=== PATIENT | male | born 1960 | race Caucasian/White ===

== ENCOUNTER → 2025-04-18 15:01 | Outpatient (BNVA) | payer OTHER, SELFPAY | PROVIDERS: Family Provider Registered Nurse; PCP Registered Nurse; Visit Provider Clinical Nurse Specialist Adult Health | DX: J02.9 Acute pharyngitis, unspecified (principal) | CPT/HCPCS: 87880 ==

== ENCOUNTER → 2025-04-25 14:59 | Outpatient (BNVA) | payer OTHER, SELFPAY | PROVIDERS: Family Provider Registered Nurse; PCP Clinical Nurse Specialist Adult Health; Visit Provider Clinical Nurse Specialist Adult Health | DX: I10 Essential (primary) hypertension (principal) | CPT/HCPCS: 80053; 80061; 84443; 85025 ==

== ENCOUNTER 2025-05-09 16:49 | Emergency (ER) | payer MEDICARE, SELFPAY ==
[2025-05-09 16:53] VITALS: BP 136/112; PULSE 85; RESP 17; TEMP 36.7; O2SAT 96; BMI 22.2
--- OUTSIDE RECORDS SUMMARY | 2025-05-09 16:54 | XMS_ITS | Encounter Summary ---
Author Organization [facility] Address [address] [facility] [address] Attn: [place] [address] Care Team Providers Care Metal Milling Machine Operator Name Role Phone Unavailable Primary Care Provider Unavailabl e Encounter Details Date Type Department Care Team (Late st Contact Info) Description 03/09/2000 Outpatient Historical John Mackenzie MD [address] [place] [address] Social History Tobacco Use Types Packs/Day Years Used Date Smoking Tobacco: Never Assessed Sex and Gender Information Value Date Recorded Sex Assigned at Not on file 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
--- OUTSIDE RECORDS SUMMARY | 2025-05-09 16:54 | XMS_ITS | Encounter Summary ---
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
--- OUTSIDE RECORDS SUMMARY | 2025-05-09 16:54 | XMS_ITS | Clinical Summary ---
Author Organization [facility]ela Bhardw[facility] Address [address] [place] [address] Phone Care Team Providers Care Sewing Machine Operator Plastic Zipper Name Role Phone Unavailable Primary Care Provider Unavailabl e Allergies No known active allergies Medications lisinopril (PRINIVIL) 40 mg tablet Take 40 mg by mouth daily. Active metoprolol tartrate (LOPRESSOR) 100 mg tablet Take 100 mg by mouth 2 times daily. 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 Gender Identity Not on file Sexual Orientation Not on file Last Filed Vital Signs Vital Sign Reading Time Taken Comments Blood Pressure 178/102 09/06/2017 11:38 PM CDT Pulse - - Temperature 36.4 C (97.6 F) 09/06/2017 11:38 PM CDT Respiratory Rate 25 09/06/2017 11:38 PM CDT Oxygen Saturation 97% 09/06/2017 11:38 PM CDT Inhaled Oxygen Concentration - - Weight 84.8 kg (187 lb) 09/06/2017 8:36 PM CDT Height 170.2 cm (5' 7 ) 09/06/2017 8:36 PM CDT Body Mass Index 29.29 09/06/2017 8:36 PM CDT Plan of Treatment Health Maintenance Due Date Last Done Comments DTAP/TDAP/TD VACCINES (1 - Tdap) 11/04/1978 COLORECTAL SCREENING 11/04/2004 Colorectal Cancer Screening 11/04/2004 FIT-DNA Q 3 years 11/04/2004 FIT/FOBT Q 1 year 11/04/2004 Flex Sig/CT Colonography Q 5 years 11/04/2004 PNEUMOCOCCAL VACCINE 50+ YEARS (1 of 1 - PCV) 11/05/19 10 ZOSTER VACCINE (1 of 2) 11/04/2009 INFLUENZA VACCINE (#1) 2025 RSV VACCINE (60+ or ) (1 - 1-dose 75+ series) 11/04/2034
--- OUTSIDE RECORDS SUMMARY | 2025-05-09 16:55 | XMS_ITS | Encounter Summary ---
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
--- OUTSIDE RECORDS SUMMARY | 2025-05-09 16:55 | XMS_ITS | Encounter Summary ---
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
--- OUTSIDE RECORDS SUMMARY | 2025-05-09 16:55 | XMS_ITS | Encounter Summary ---
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
--- OUTSIDE RECORDS SUMMARY | 2025-05-09 16:55 | XMS_ITS | Encounter Summary ---
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
--- OUTSIDE RECORDS SUMMARY | 2025-05-09 16:55 | XMS_ITS | Encounter Summary ---
Author Organization 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
--- NOTE | 2025-05-09 17:06 | ECG_ITS ---
[facility] Test Date: 2025-05-09 Pat Name: Jorge Valles Department: Room: Gender: Male Retail Warehouse Associate: : 1960 Requested By: Tiara Rogers Order Number: [id number] Craft MD: Blaze Rg M.D. Measurements Intervals [place] Rate: 89 P: 65 [place]: 171 QRS: 26 QRSD: 79 T: 124 QT: 367 QTc: 447 Interpretive Statements SINUS RHYTHM WITH MARKED SINUS ARRHYTHMIA POSSIBLE LEFT ATRIAL ENLARGEMENT [-0.1mV P-WAVE IN V1/V2] LEFT VENTRICULAR HYPERTROPHY AND ST-T CHANGE [VOLTAGE CRITERIA PLUS ST/T ABNORMALITY] Compared to ECG 09/21/2018 13:17:26 Left ventricular hypertrophy now present T-wave abnormality no longer present in the inferior leads and is new in the lateral leads Electronically Signed On 05-09-2025 20:02:39 PRESS AND BLOW MACHINE TENDER by Blaze Rg M.D. [id number]
--- NOTE | 2025-05-09 17:07 | W.ED.ARRPALP ---
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 Patient went to primary care physician due to palpitations, and was diagnosed with atrial fibrillation. Patient states that it happens on and off for at least a month. He has mild symptoms of shortness of breath with exertion. He denies any other symptoms of chest discomfort. Associated symptoms: Deny anxiety, nausea or vomiting Related Data Previous Rx's ?Medication ?Instructions ?Recorded albuterol sulfate 90 mcg/actuation 2 inh inhalation QID PRN shortness 04/18/25 aerosol inhaler of breath or wheezing #8.5 grams hydrochlorothiazide 12.5 mg tablet 12.5 mg PO DAILY #30 tabs 04/18/25 Nebulizer machine and supplies #1 ea 04/25/25 budesonide 0.5 mg/2 mL suspension 0.5 mg (2 mL) inhalation BID #60 mL 04/25/25 for nebulization losartan 25 mg tablet 50 mg (2 x 25 mg) PO DAILY #60 tabs 04/25/25 atorvastatin 10 mg tablet 10 mg PO QDAY #30 tabs 04/30/25 apixaban 5 mg tablet (Eliquis) 5 mg PO Q12H #60 tabs 05/09/25 metoprolol succinate 25 mg 25 mg PO DAILY #30 tabs 05/09/25 tablet,extended release 24 hr Allergies Allergy/AdvReac Type Severity Reaction Status Date / Time No Known Allergies Allergy Unverified 05/09/25 14:33 Review of Systems General: Reports: 10 or more systems reviewed and unremarkable except in HPI and below Const: Denies: fever(s), chills, change in appetite, fatigue or malaise Eyes: Denies: change in vision or blurry vision ENMT: Denies: throat pain or nasal discharge Card: Denies: chest pain or palpitations Resp: Reports: dyspnea; Denies: non-productive cough GI: Denies: abdominal pain, nausea or vomiting : Denies: flank pain or difficulty urinating Musc: Denies: neck pain or back pain Neuro: Denies: headache(s) or numbness in extremities Psych: Denies: anxiety or depression PFSH ED PFSH: Medical History (Updated 05/09/25 @ 21:09 by JAYME Nazario) Stage 4 chronic kidney disease Other hyperlipidemia Tobacco dependence due to cigarettes 50 pack year history of smoking Primary hypertension Surgical History History of neck surgery Family History Father , AGE 76 CAD (coronary artery disease) Mother , AGE 75 Cancer COLON Social History Smoking and tobacco/nicotine status: current every day tobacco/nicotine user Physical Exam Const: COMMON NORMALS: no acute distress, average body habitus, patient oriented x3, no limitations, healthy appearing, alert and well nourished HENMT: COMMON NORMALS: normocephalic and atraumatic HEAD & SCALP: normocephalic and atraumatic Neck/C-Spine: COMMON NORMALS: no JVD Resp: COMMON NORMALS: normal respiratory effort, No retractions, No use of accessory muscles and clear to auscultation bilaterally EFFORT & INSPECTION: Yes able to speak in complete sentences AUSCULTATION: clear to auscultation bilaterally Cardio: COMMON NORMALS: no JVD, regular rate, regular rhythm, S1 normal heart sound present, S2 normal heart sound present, No gallops present (Cardio), No clicks present (Cardio), No murmurs present (Cardio), No rub (Cardio) and Peripheral pulses 2+ throughout RATE: regular rate RHYTHM: regular rhythm HEART SOUNDS: S1 normal heart sound present and S2 normal heart sound present PERIPHERAL PULSES: Peripheral pulses 2+ throughout GI: COMMON NORMALS: Normal to inspection, nondistended, normoactive bowel sounds present, Soft to palpation, non-tender, No hepatosplenomegaly present, no masses and no bruits PALPATION: Yes Soft to palpation and Yes No hepatosplenomegaly present : COMMON NORMALS: Yes no CVA tenderness BLADDER/KIDNEY EXAM: Yes no CVA tenderness Back/Pelvis: COMMON NORMALS: no CVA tenderness, thoracic and lumbar spine normal to inspection, no thoracic nor lumbar tenderness and thoraco-lumbar ROM normal Neuro: COMMON NORMALS: patient oriented x3 SENSORIUM/ORIENTATION: Yes alert Psych: COMMON NORMALS: mental status grossly normal, Normal thought process present, cooperative, normal affect, speech normal and activity/motor behavior normal SPEECH: Yes normal speech THOUGHT PROCESS: Normal thought process present Skin: COMMON NORMALS: no rashes or lesions noted, no wounds, turgor normal, no jaundice, no petechiae and no mottling GENERAL SKIN EXAM: no rashes or lesions noted and turgor normal Course Vital Signs: Vital signs: Vital Signs Temperature 98.1 F 05/09/25 16:53 Pulse Rate 86 05/09/25 21:20 Respiratory Rate 16 05/09/25 18:07 Blood Pressure 163/99 05/09/25 21:20 Pulse Oximetry 85 L 05/09/25 21:20 Oxygen Delivery Me thod Room Air 05/09/25 20:00 MDM - Arrhythmia/Palpitations Medical Decision Making Patient is a 64-year-old gentleman with history of hypertension that presents to the ED due to palpitations. He initially was visiting with his primary care physician, was brought to the ED with concern of atrial fibrillation. His initial rhythm was sinus rhythm with PVC and isolated PAC. Monitor was confirmed, and patch is reapplied to [employer] his rhythm. We were able to capture atrial fibrillation and atrial flutter on monitor, and on EKG atrial flutter. I suspect this has been the rhythm patient has had paroxysmally over the last 1 month. Lovenox was given x 1 here. I was careful not to convert him with concern of thrombosis. Full cardiac rule out was done, and his troponin was flat. Patient was given metoprolol succinate x 1, and placed on metoprolol succinate for home. His [id number] score was 2, and my concern patient have an ischemic disease, he was placed on Eliquis. Coupon was given. I suspect his hypokalemia is related to his hydrochlorothiazide, and therefore this was stopped as well as he has worsening renal function, which could be corrected by stopping the diuretic. I have also encouraged him to drink the appropriate amount of noncaffeinated beverages. Patient is feeling well at time of discharge and is no longer having palpitations. Him, his , and daughter's questions were answered to their understanding. Medical Records I reviewed the patient's medical records. Lab Data I reviewed the patient's lab results. 05/09/25 17:22 05/09/25 17:22 Radiology Impressions Chest X-Ray 05/09/25 17:19 IMPRESSION: No acute findings. Laboratory Results WBC 12.83 10^3/uL (3.29-11.43) H 05/09/25 17:22 RBC 5.00 10^6/uL (3.85-5.65) 05/09/25 17:22 Hgb 15.70 g/dL (11.27-16.99) 05/09/25 17:22 Hct 46.6 % (37-53) 05/09/25 17:22 MCV 93.2 fl (82-101) 05/09/25 17:22 MCH 31.4 pg (27-33) 05/09/25 17:22 MCHC 33.7 g/dL (30-55) 05/09/25 17:22 RDW 13.7 % (12.1-15.1) 05/09/25 17:22 Plt Count 247 10^3/cmm (157-399) 05/09/25 17:22 MPV 10.8 fL (7.4-10.4) H 05/09/25 17:22 Neut % (Auto) 75.3 % 05/09/25 17:22 Lymph % (Auto) 17.1 % 05/09/25 17:22 [place] % (Auto) 6.6 % 05/09/25 17:22 Eos % (Auto) 0.3 % 05/09/25 17: Baso % (Auto) 0.4 % 05/09/25 17:22 Neut # (Auto) 9.65 10^3/uL (1.8-7.7) H 05/09/25 17:22 Lymph # (Auto) 2.2 10^3/uL (0.8-4.8) 05/09/25 17:22 [place] # (Auto) 0.9 10^3/uL (0.2-0.9) 05/09/25 17:22 Eos # (Auto) 0.0 10^3/uL (0.0-0.8) 05/09/25 17:22 Baso # (Auto) 0.1 10^3/uL (0.0-0.1) 05/09/25 17:22 Nucleated RBC % (auto) 0 % 05/09/25 17:22 Nucleated RBCs # 0.0 /100WBC 05/09/25 17:22 PT 12.30 SECONDS (12.1-14.9) 05/09/25 17:22 INR 0.85 (0.8-1.2) 05/09/25 17:22 Sodium 142 mmol/L (136-145) 05/09/25 17:22 Potassium 3.4 mmol/L (3.5-5.1) L 05/09/25 17:22 Chloride 105 mmol/L (98-107) 05/09/25 17:22 Carbon Dioxide 23 mmol/L (22-29) 05/09/25 17:22 Anion Gap 17.4 (5-19) 05/09/25 17:22 BUN 56 mg/dL (8-23) H 05/09/25 17:22 Creatinine 2.8 mg/dL (0.7-1.2) H 05/09/25 17:22 GFR Calculation 22.9 mL/min (90-130) L 05/09/25 17:22 Glucose 101 mg/dL (65-115) 05/09/25 17:22 Calculated Osmolality 310 mOsm/kg (285-295) H 05/09/25 17:22 Calcium 8.9 mg/dL (8.5-10.5) 05/09/25 17:22 Magnesium 2.1 mg/dL (1.7-2.3) 05/09/25 17:22 Total Bilirubin 0.6 mg/dL (0.15-1.2) 05/09/25 17:22 AST 21 U/L (0-40) 05/09/25 17:22 ALT 17 U/L (0-41) 05/09/25 17:22 Alkaline Phosphatase 69 U/L (40-130) 05/09/25 17:22 Troponin T Baseline 75 ng/L (0-15) H 05/09/25 17:22 Troponin T 120 Minute 73.40 ng/L (0-15) H 05/09/25 19:24 Delta Troponin T -1.60 ABS# (0-10) L 05/09/25 19:24 NT-Pro-B Natriuret Pep 5471 pg/mL (0-125) H 05/09/25 17:22 Total Protein 6.3 g/dL (6.6-8.7) L 05/09/25 17:22 Albumin 3.9 g/dL (3.5-5.2) 05/09/25 17:22 Globulin 2.4 g/dL (1.3-4.6) 05/09/25 17:22 TSH 0.37 uIU/mL (0.27-4.20) 05/09/25 17:22 Urine Color Yellow (Yellow) 05/09/25 18:36 Urine Appearance Clear (CLEAR) 05/09/25 18:36 Urine pH 5.0 (5-7) 05/09/25 18:36 Ur Specific [place] 1.008 (1.005-1.030) 05/09/25 18:36 Urine Protein 2+ (Negative) A 05/09/25 18:36 Urine Glucose (UA) Negative (Normal) 05/09/25 18:36 Urine Ketones Negative (Negative) 05/09/25 18:36 Urine Blood 1+ (Negative) A 05/09/25 18:36 Urine Nitrate Negative (Negative) 05/09/25 18:36 Urine Bilirubin Negative (Negative) 05/09/25 18:36 Urine Urobilinogen 0.2 mg/dL (Negative) 05/09/25 18:36 Ur Leukocyte Esterase Negative (Negative) 05/09/25 18:36 Urine RBC 0-2 /hpf (0-2) 05/09/25 18:36 Urine WBC 0-5 /hpf (0-5) 05/09/25 18:36 Ur Squamous Epith Cells 0-5 /hpf (0-5) 05/09/25 18:36 Amorphous Sediment Not Reportable 05/09/25 18:36 Urine Bacteria None seen /hpf (NONE) 05/09/25 18:36 Hyaline Casts 2.05 /lpf 05/09/25 18:36 All radiology interpretation(s) finalized by discharge ED provider radiology interpretation(s): No acute findings on my view EKG Data EKG 1: Interpretation: Sinus rhythm without ST segment elevation, PAC, PVC Other EKG comments: Chest X-Ray 05/09/25 17:19 IMPRESSION: No acute findings. EKG 2: Interpretation: Atrial fibrillation/flutter Other EKG comments: Chest X-Ray 05/09/25 17:19 IMPRESSION: No acute findings. EKG 3: Interpretation: Normal sinus rhythm without ST segment elevation Other EKG comments: Chest X-Ray 05/09/25 17:19 IMPRESSION: No acute findings. Discharge Plan Discharge Patient Disposition: Home Clinical Impression: Hypokalemia Atrial flutter Qualifiers: Atrial flutter type: unspecified Qualified Code(s): I48.92 - Unspecified atrial flutter Condition: Stable Prescriptions: New Eliquis 5 mg tablet 5 mg PO Q12H Qty: 60 0RF metoprolol succinate 25 mg tablet extended release 24 hr 25 mg PO DAILY Qty: 30 0RF No Action losartan 25 mg tablet 50 mg PO DAILY Qty: 60 0RF budesonide 0.5 mg/2 mL suspension for nebulization 0.5 mg inhalation BID Qty: 60 0RF (DME) Nebulizer machine and supplies See Rx Instructions .ROUTE .MEDSUPPLY Qty: 1 11RF Rx Instructions: As directed albuterol sulfate 90 mcg/actuation HFA aerosol inhaler 2 inh inhalation QID PRN (Reason: shortness of breath or wheezing) Qty: 8.5 0RF hydrochlorothiazide 12.5 mg tablet 12.5 mg PO DAILY Qty: 30 0RF atorvastatin 10 mg tablet 10 mg PO QDAY Qty: 30 11RF Discharge Orders: Discharge ED (Routine); Ordered 05/09/25 Ordered By: Tiara Rogers Referrals: Ivan Desir M.D [Physician, Cardiology] - 7-10 days Michael Grimes FNP [Family Provider, Family Practice] Silas Sharif NP [Primary Care Provider, Family Practice] Discharge Diet: Low Salt Patient Instructions: Atrial Flutter (ED), DASH Eating Plan (ED), Patient Portal & Merly Instructions Activity Restrictions/Additional Instructions: - Stop your hydrochlorothiazide (your water pill) - Repeat your kidney functions with your doctor in 1 week - Make an appointment to follow-up with your doctor in 1 week. - You will have a new blood pressure/rate control medication at the pharmacy. (Metoprolol) - You also have a heavy-duty blood thinner at the pharmacy. Your nurses went to find a coupon because this is not affordable without it. - Your thyroid is borderline normal and may need to be further worked up with your primary doctor. Please show them this information on your instructions. - You still need more of a workup outpatient regarding your paroxysmal (in and out) atrial fibrillation. You have to rule out blockage as the source. This is done through a internal controls specialist. This will be done on an outpatient basis. You will need to return to the ED if you do have chest pain with this concern. A referral has been made to the internal controls specialist, Dr. Desir and is on your discharge information. Feel free to call the office for an appointment and point out the referral is in this ER visit. Thank you for choosing [facility] for your healthcare needs today. You have been screened and evaluated and felt safe for discharge. Health conditions do change or evolve sometimes and as such it is important that you follow up with your Primary Doctor to be re checked, 3-5 days is a general good time frame for follow up. You are always welcome to return to the ED for re assessment if your symptoms are worsening or you have new concerns Print Language: Guamanian Coding Level of Care Code ED Structural Engineering Project Manager for Soraida Dias
--- NOTE | 2025-05-09 17:19 | XRR_ITS ---
PROCEDURE INFORMATION: Exam: XR Chest Exam date and time: 05/09/2025 5:23 PM Age: 64 years old Clinical indication: Dyspnea; Additional info: Palpitations, shortness of breath TECHNIQUE: Imaging protocol: Radiologic exam of the chest. Views: 1 view. COMPARISON: CR XR chest 1V [id number] 09/21/2018 2:07 PM FINDINGS: Lungs: No consolidation. Possible calcific granulomas or bronchovascular structures en face. Pleural spaces: Unremarkable. No pleural effusion. No pneumothorax. Heart/Mediastinum: Unremarkable. No cardiomegaly. Bones/joints: Cervical fusion hardware. Ossification along the right midclavicular shaft could be related to healed fracture deformity. XR/XR chest 1V portable [id number] IMPRESSION: No acute findings.
[2025-05-09 17:41] LABS: Hematocrit 46.6 % (37-53); Hemoglobin 15.70 g/dL (11.27-16.99); Mean Corpuscular HGB Conc 33.7 g/dL (30-55); Mean Corpuscular Hemoglobin 31.4 pg (27-33); Mean Corpuscular Volume 93.2 fl (82-101); Nucleated Red Blood Cells % 0 %; Platelet Count 247 10^3/cmm (157-399); Red Blood Count 5.00 10^6/uL (3.85-5.65); White Blood Count 12.83 10^3/uL (3.29-11.43)
[2025-05-09 17:57] LABS: INR 0.85 (0.8-1.2); Prothrombin Time 12.30 SECONDS (12.1-14.9)
[2025-05-09 18:07] VITALS: BP 142/95; RESP 16; O2SAT 99
[2025-05-09 18:20] LABS: Troponin(5th) Baseline 75 ng/L (0-15)
[2025-05-09 18:30] VITALS: BP 189/110; PULSE 90; O2SAT 96
[2025-05-09 18:30] LABS: Alanine Aminotransferase 17 U/L (0-41); Albumin Level 3.9 g/dL (3.5-5.2); Alkaline Phosphatase 69 U/L (40-130); Anion Gap 17.4 (5-19); Aspartate Amino Transferase 21 U/L (0-40); Blood Urea Nitrogen 56 mg/dL (8-23); Calcium 8.9 mg/dL (8.5-10.5); Carbon Dioxide 23 mmol/L (22-29); Chloride 105 mmol/L (98-107); Creatinine Clr Calc Pharmacy 23.5560; Globulin 2.4 g/dL (1.3-4.6); Glucose 101 mg/dL (65-115); Magnesium 2.1 mg/dL (1.7-2.3); NT Pro B Type Natriuretic Pept 5471 pg/mL (0-125); Osmolality Calculated 310 mOsm/kg (285-295); Potassium 3.4 mmol/L (3.5-5.1); Sodium 142 mmol/L (136-145); Thyroid Stimulating Hormone 0.37 uIU/mL (0.27-4.20); Total Protein 6.3 g/dL (6.6-8.7)
[2025-05-09 18:49] LABS: Glucose Urine UA Negative (Normal); Nitrate Urine Negative (Negative); Specific Gravity, Urine 1.008 (1.005-1.030)
[2025-05-09 18:54] LABS: Add Urine Microscopic? YES
[2025-05-09] MEDS: metoprolol succinate ER (24 HR) 25 mg Tablet PO (18:58)
[2025-05-09 19:00] VITALS: BP 178/110; PULSE 88; O2SAT 95
--- NOTE | 2025-05-09 19:20 | ECG_ITS ---
[facility]25[facility]09 Pat Name: Jorge Valles Department: Room: Gender: Male Vice President Tax: : 1960 Requested By: Tiara Rogers Order Number: [id number] Craft MD: Blaze Rg M.D. Measurements Intervals [place] Rate: 68 P: 81 [place]: 172 QRS: 61 QRSD: 105 T: 119 QT: 401 QTc: 428 Interpretive Statements SINUS RHYTHM WITH OCCASIONAL SUPRAVENTRICULAR PREMATURE COMPLEXES LOW QRS VOLTAGE IN EXTREMITY LEADS [QRS DEFLECTION < 0.5 mV IN LIMB LEADS] Compared to ECG 05/09/2025 16:53:05 There is no significant change Electronically Signed On 05-09-2025 20:41:54 WHARF HELPER by Blaze Rg M.D. [email or web address] [id number]
[2025-05-09 19:56] LABS: Troponin 5 2HR 73.40 ng/L (0-15)
[2025-05-09 19:57] LABS: Troponin 5 2HR Delta -1.60 ABS# (0-10)
[2025-05-09 20:00] VITALS: BP 176/101; PULSE 84; O2SAT 96
[2025-05-09 21:20] VITALS: BP 163/99; PULSE 86; O2SAT 85
== END 2025-05-09 22:09 | disposition home or self-care (01) ==
PROVIDERS: Emergency Provider Physician Assistant; Family Provider Registered Nurse; PCP Clinical Nurse Specialist Adult Health
DX: E87.6 Hypokalemia (principal); I48.92 Unspecified atrial flutter; Z72.0 Tobacco use; E78.49 Other hyperlipidemia; I12.9 Hypertensive chronic kidney disease with stage 1 through stage 4 chronic kidney disease, or unspecified chronic kidney disease; N18.4 Chronic kidney disease, stage 4 (severe)
CPT/HCPCS: 36415; 71045; 80053; 81001; 83735; 83880; 84443; 84484; 85025; 85610; 93005; 96372; 99285; J1650; J9999

== ENCOUNTER → 2025-05-17 08:25 | Outpatient (BNVA) | payer MEDICARE, SELFPAY | PROVIDERS: Family Provider Registered Nurse; PCP Clinical Nurse Specialist Adult Health; Visit Provider Dermatology | DX: L82.1 Other seborrheic keratosis (principal); L72.0 Epidermal cyst; L57.8 Other skin changes due to chronic exposure to nonionizing radiation; D48.5 Neoplasm of uncertain behavior of skin | CPT/HCPCS: 11102; 99203 ==

== ENCOUNTER → 2025-06-04 12:58 | Outpatient (BNVA) | payer MEDICARE, SELFPAY | PROVIDERS: PCP Clinical Nurse Specialist Adult Health; Visit Provider Clinical Nurse Specialist Adult Health | DX: N18.4 Chronic kidney disease, stage 4 (severe) (principal); I12.9 Hypertensive chronic kidney disease with stage 1 through stage 4 chronic kidney disease, or unspecified chronic kidney disease | CPT/HCPCS: 80053; 82306; 82310; 83735; 83970; 84100 ==

== ENCOUNTER → 2025-06-13 08:45 | Outpatient (BNVA) | payer MEDICARE, SELFPAY | PROVIDERS: PCP Clinical Nurse Specialist Adult Health; Visit Provider Dermatology | DX: C44.619 Basal cell carcinoma of skin of left upper limb, including shoulder (principal) | CPT/HCPCS: 99213 ==